=== PATIENT | female | born 1990 | race Hispanic/Latino ===

== ENCOUNTER 2017-07-01 12:14 | Emergency (ER) | payer OTHER ==
[2017-07-01 12:15] VITALS: BMI 34.3
[2017-07-01 12:32] VITALS: PULSE 101; RESP 19; TEMP 99.5; O2SAT 99
[2017-07-01] MEDS ORDERED: Albuterol-Ipratrop 3 mg / 0.5 (3 ml) UD IH STA ×3 (12:53→14:24)
--- NOTE | 2017-07-01 12:56 | ED PDOC ---
HPI: SOB/CHF/COPD Time Seen by Provider: 07/01/17 12:50 Chief Complaint (Nursing): Shortness Of Breath History Per: Patient Onset/Duration Of Symptoms: Days (2) Current Symptoms Are (Timing): Still Present Quality: Tightness Current Respiratory Medications: See Home Med List Severity: Moderate Associated Symptoms: Productive Cough. denies: Fever, Leg/Calf Pain, Ankle/Leg Swelling Additional Complaint(s): SOB, wheezing and cough productive yellow sputum Denies fever. no improvement with home inhalers Past Medical History Vital Signs: Last Vital Signs Temp 99.5 F 07/01/17 12:29 Pulse 101 H 07/01/17 12:29 Resp 19 07/01/17 12:29 BP Pulse Ox 99 07/01/17 12:56 - Medical History PMH: Asthma, Gastritis - Surgical History Surgical History: Endoscopy - Family History Family History: States: Unknown Family Hx - Home Medications Home Medications: Ambulatory Orders Medication Instructions Recorded Albuterol Sulfate [Proair Hfa] 2 puff INH PRN PRN 03/08/16 Albuterol 0.083% [Albuterol 0.083% 2.5 mg IH Q4 PRN #25 vial 07/07/16 Inhal Gisele (2.5 mg/3 ml) UD] Prednisone 50 mg PO DAILY #5 tablet 07/07/16 Ibuprofen [Motrin Tab] 600 mg PO Q6 PRN #20 tab 10/16/16 oxyCODONE/Acetaminophen [Percocet 1 tab PO Q4 PRN #20 tab 10/16/16 5/325 mg Tab] Azithromycin [Zithromax] 250 mg PO DAILY #6 tab 07/01/17 Prednisone 50 mg PO DAILY #5 tab 07/01/17 - Allergies Allergies/Adverse Reactions: Allergies Allergy/AdvReac Type Severity Reaction Status Date / Time No Known Allergies Allergy Verified 07/07/16 12:30 Review of Systems ROS Statement: Except As Marked, All Systems Reviewed And Found Negative Constitutional: Negative for: Fever Cardiovascular: Negative for: Chest Pain Respiratory: Positive for: Cough, Shortness of Breath, Wheezing Physical Exam - Reviewed Nursing Documentation Reviewed: Yes Vital Signs Reviewed: Yes - Physical Exam Appears: Positive for: Non-toxic, No Acute Distress Head Exam: Positive for: ATRAUMATIC, NORMAL INSPECTION, NORMOCEPHALIC Skin: Positive for: Normal Color, Warm, DRY Eye Exam: Positive for: EOMI, Normal appearance, PERRL ENT: Positive for: Normal ENT Inspection Neck: Positive for: Normal, Painless ROM Cardiovascular/Chest: Positive for: Regular Rate, Rhythm Respiratory: Positive for: Rhonchi, Wheezing, Respiratory Distress (Mild) Gastrointestinal/Abdominal: Positive for: Normal Exam, Bowel Sounds, Soft Back: Positive for: Normal Inspection Extremity: Positive for: Normal ROM Neurologic/Psych: Positive for: Alert, Oriented - ECG O2 Sat by Pulse Oximetry: 99 Disposition - Clinical Impression Clinical Impression: Bronchitis, Asthma - Patient ED Disposition Is Patient to be Admitted: No - Disposition Referrals: Tom Mccarty MD [Primary Care Provider] - Disposition: Routine/Home Disposition Time: 14:25 Condition: FAIR Prescriptions: Azithromycin [Zithromax] 250 mg PO DAILY #6 tab Prednisone 50 mg PO DAILY #5 tab Instructions: Acute Bronchitis (ED), Bronchospasm (ED) Forms: [employer] (Swedish)
[2017-07-01] MEDS ORDERED: Albuterol-Ipratrop 3 mg / 0.5 (3 ml) UD ONE (13:18)
[2017-07-01 14:36] LABS: BASO % 0.3 % (0.0-2.0); EOS # 0.1 K/uL (0.0-0.7); EOS % 0.8 % (0.0-4.0); LYMPH # 1.9 K/uL (1.0-4.3); LYMPH % 15.3 % (20.0-40.0); MEAN CELL VOLUME 85.7 fl (81.0-99.0); MEAN CORPUSCULAR HEMOGLOBIN 29.1 pg (27.0-31.0); MEAN PLATELET VOLUME 8.6 fl (7.2-11.7); MONO # 0.7 K/uL (0.0-0.8); MONO % 5.6 % (0.0-10.0); NEUT # 9.5 K/uL (1.8-7.0); RED CELL DISTRIBUTION WIDTH 13.4 % (11.5-14.5); WHITE BLOOD COUNT 12.2 K/uL (4.8-10.8)
[2017-07-01 14:46] LABS: ALKALINE PHOSPHATASE 164 U/L (38-126); ALT/SGPT 30 U/L (9-52); AST/SGOT 27 U/L (14-36); BILIRUBIN,TOTAL 0.4 mg/dl (0.2-1.3); BLOOD UREA NITROGEN 15 mg/dl (7-17); CALCIUM 9.4 mg/dL (8.4-10.2); CARBON DIOXIDE 23 mmol/L (22-30); CHLORIDE 104 mmol/L (98-107); GFR AFRICAN-AMERICAN > 60; GLUCOSE,RANDOM 82 mg/dL (65-105); POTASSIUM 3.8 MMOL/L (3.6-5.0); SODIUM 138 mmol/l (132-148); TOTAL PROTEIN 8.8 G/DL (6.3-8.2)
[2017-07-01 14:50] LABS: ALB/GLOB RATIO 1.2 (1.0-2.1)
--- NOTE | 2017-07-01 18:23 | RAD ---
HISTORY: cough COMPARISON: No prior. TECHNIQUE: Chest PA and lateral FINDINGS: LUNGS: No active pulmonary disease. PLEURA: No significant pleural effusion identified. No pneumothorax apparent. CARDIOVASCULAR: Normal. OSSEOUS STRUCTURES: No significant abnormalities. VISUALIZED UPPER ABDOMEN: Normal. OTHER FINDINGS: None. IMPRESSION: No active disease.
== END 2017-07-01 15:22 | disposition home or self-care (01) ==
LOC: H.ER 12:14 → SUPCPDRO 12:14 → H.ER 15:22
DX: J44.9 Chronic obstructive pulmonary disease, unspecified (principal)
CPT/HCPCS: 71020; 80053; 81025; 85025; 87804; 94640; 96374; 99282; J2930

== ENCOUNTER 2018-04-30 00:52 | Emergency (ER) | payer BC, OTHER ==
[2018-04-30 00:53] VITALS: BMI 34.3
[2018-04-30 01:17] VITALS: RESP 16; TEMP 98
[2018-04-30 02:24] LABS: BASO % 0.4 % (0.0-2.0); EOS # 0.2 K/uL (0.0-0.7); EOS % 2.4 % (0.0-4.0); HEMOGLOBIN 14.3 g/dL (12.0-16.0); LYMPH # 2.5 K/uL (1.0-4.3); LYMPH % 30.8 % (20.0-40.0); MEAN CELL VOLUME 85.1 fl (81.0-99.0); MEAN CORPUSCULAR HEMOGLOBIN 29.2 pg (27.0-31.0); MEAN CORPUSCULAR HGB CONC 34.3 g/dL (33.0-37.0); MEAN PLATELET VOLUME 8.3 fl (7.2-11.7); MONO # 0.6 K/uL (0.0-0.8); MONO % 7.4 % (0.0-10.0); NEUT # 4.7 K/uL (1.8-7.0); RBC 4.89 Mil/uL (3.80-5.20); RED CELL DISTRIBUTION WIDTH 13.6 % (11.5-14.5)
[2018-04-30 02:33] LABS: ALB/GLOB RATIO 1.1 (1.0-2.1); ALBUMIN 4.4 g/dL (3.5-5.0); ALT/SGPT 29 U/L (9-52); AST/SGOT 24 U/L (14-36); BLOOD UREA NITROGEN 18 mg/dl (7-17); CALCIUM 9.4 mg/dL (8.4-10.2); GFR NON-AFRICAN AMERICAN > 60
--- NOTE | 2018-04-30 02:49 | ED PDOC ---
HPI: Headache Time Seen by Provider: 04/30/18 00:56 Chief Complaint (Nursing): Headache Chief Complaint (Provider): Diffuse head pressure, dizzines, chest pain History Per: Patient History/Exam Limitations: no limitations Onset/Duration Of Symptoms: Hrs Current Symptoms Are (Timing): Still Present Additional Complaint(s): 27 yo female with history of migraines presents for evaluation of chest pain, central without radiation for 3-4 hours. PT states she gets migraines regularly and got one this evening at 8pm. Pt took motrin and states after she began to have pressure in her entire head, which she has not had in the past. Pt also reports feeling dizzy. Pt was recently seen by neurologist and given Rx for topamax which she has not started yet. Past Medical History Vital Signs: Last Vital Signs Temp 98.0 F 04/30/18 01:04 Pulse 80 04/30/18 01:04 Resp 16 04/30/18 01:04 BP 122/80 04/30/18 01:04 Pulse Ox 100 04/30/18 01:04 - Medical History PMH: Asthma, Gastritis - Surgical History Surgical History: Endoscopy - Family History Family History: States: Unknown Family Hx - Home Medications Home Medications: Ambulatory Orders Medication Instructions Recorded Albuterol Sulfate [Proair Hfa] 2 puff INH PRN PRN 03/08/16 Albuterol 0.083% [Albuterol 0.083% 2.5 mg IH Q4 PRN #25 vial 07/07/16 Inhal Gisele (2.5 mg/3 ml) UD] Prednisone 50 mg PO DAILY #5 tablet 07/07/16 Ibuprofen [Motrin Tab] 600 mg PO Q6 PRN #20 tab 10/16/16 oxyCODONE/Acetaminophen [Percocet 1 tab PO Q4 PRN #20 tab 10/16/16 5/325 mg Tab] Azithromycin [Zithromax] 250 mg PO DAILY #6 tab 07/01/17 Prednisone 50 mg PO DAILY #5 tab 07/01/17 Meclizine [Meclizine*] 25 mg PO Q6 PRN #30 tab 04/30/18 - Allergies Allergies/Adverse Reactions: Allergies Allergy/AdvReac Type Severity Reaction Status Date / Time No Known Allergies Allergy Verified 04/30/18 01:09 Physical Exam - Reviewed Nursing Documentation Reviewed: Yes Vital Signs Reviewed: Yes - Physical Exam Appears: Positive for: Well, Non-toxic, No Acute Distress Head Exam: Positive for: ATRAUMATIC, NORMAL INSPECTION, NORMOCEPHALIC Skin: Positive for: Normal Color, Warm, DRY Eye Exam: Positive for: Normal appearance ENT: Positive for: Normal ENT Inspection Neck: Positive for: Normal, Painless ROM Cardiovascular/Chest: Positive for: Regular Rate, Rhythm Respiratory: Positive for: Normal Breath Sounds. Negative for: Accessory Muscle Use, Respiratory Distress Back: Positive for: Normal Inspection Extremity: Positive for: Normal ROM Neurologic/Psych: Positive for: Alert, Oriented - ECG O2 Sat by Pulse Oximetry: 100 Medical Decision Making Medical Decision Making: Pt reports feeling better on re-evaluation. Labs normal CXR without acute cardiopulmonary disease . Disposition - Clinical Impression Clinical Impression: Chest pain, Migraine - Patient ED Disposition Is Patient to be Admitted: No - Disposition Referrals: Tom Mccarty MD [Primary Care Provider] - Disposition: Routine/Home Disposition Time: 03:47 Condition: STABLE Prescriptions: Meclizine [Meclizine*] 25 mg PO Q6 PRN #30 tab PRN Reason: Dizziness Instructions: Chest Pain That Is Not Caused by the Heart (DC)
[2018-04-30 04:26] VITALS: BP 106/72; PULSE 77; O2SAT 99
--- NOTE | 2018-04-30 08:15 | RAD ---
Date of service: 04/30/2018 HISTORY: chest pain COMPARISON: Chest radiographs 07/01/2017. TECHNIQUE: Chest PA and lateral FINDINGS: LUNGS: No active pulmonary disease. PLEURA: No significant pleural effusion identified. No pneumothorax apparent. CARDIOVASCULAR: Normal. OSSEOUS STRUCTURES: No significant abnormalities. VISUALIZED UPPER ABDOMEN: Normal. OTHER FINDINGS: None. IMPRESSION: No interval acute cardiopulmonary disease appreciated.
--- NOTE | 2018-04-30 08:56 | CARD ---
APPROVED REPORT Date of service: 04/30/2018 EKG Measurement Heart [id number] <Conclusion> Normal sinus rhythm late transition otherwise normal ECG
== END 2018-04-30 04:13 | disposition home or self-care (01) ==
LOC: H.ER 00:52
DX: R07.9 Chest pain, unspecified (principal); G43.909 Migraine, unspecified, not intractable, without status migrainosus; J45.909 Unspecified asthma, uncomplicated